=== PATIENT | female | born 1945 | race Caucasian/White ===

== ENCOUNTER 2017-06-13 20:57 | Inpatient (IN) | payer MEDICARE, OTHER ==
[~2017-06-13] VITALS: Ht 157.5 cm; Wt 79.4 kg
[2017-06-13 21:15] VITALS: BP 171/123; PULSE 64; RESP 20; TEMP 98.6; O2SAT 96
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
--- NOTE | 2017-06-13 22:11 | RADRPT ---
EXAM DATE/TIME: 06/13/2017 21:48 [facility] COMPARISON: No previous studies available for comparison. INDICATIONS : Cough MEDICAL HISTORY : Parkinson's. smoker. SURGICAL HISTORY : Stents. ENCOUNTER: Initial ACUITY: 2 months PAIN SCORE: 0/10 LOCATION: Bilateral chest FINDINGS: Mild bibasilar infiltrates. No significant effusion. Cardiac contour is satisfactory. Mild degenerati ve changes in the spine and shoulders. CONCLUSION: Mild basilar infiltrates Randy Newman MD on June 13, 2017 at 22:08 Board Certified Radiologist. This report was verified electronically.
[2017-06-13 22:15] LABS: BILIRUBIN, URINE NEG (NEG); BLOOD, URINE NEG (NEG); GLUCOSE,URINE NEG (NEG); KETONE, URINE NEG (NEG); NITRITE,URINE NEG (NEG); URINE COLOR YELLOW (YELLW/STRAW); URINE LEUKOCYTE ESTERASE TRACE (NEG)
[2017-06-13 22:32] LABS: ALBUMIN 3.3 GM/DL (3.4-5.0); ALT (GPT) 22 U/L (10-53); AST (GOT) 14 U/L (15-37); BICARBONATE 28.8 MEQ/L (21.0-32.0); BLOOD UREA NITROGEN 24 MG/DL (7-18); CALCIUM 9.2 MG/DL (8.5-10.1); CHLORIDE 104 MEQ/L (98-107); CREATININE 0.78 MG/DL (0.50-1.00); GLOMERULAR FILTRATION RATE 72 ML/MIN (>89); GLUCOSE,RANDOM 101 MG/DL (74-106); SODIUM (NA) 138 MEQ/L (136-145)
[2017-06-13 22:35] LABS: ALKALINE PHOSPHATASE 59 U/L (45-117); AUTOMATED NEUTROPHIL # 3.7 TH/MM3 (1.8-7.7); BASOPHIL % 0.3 % (0.0-2.0); EOSINOPHIL # 0.1 TH/MM3 (0-0.4); EOSINOPHIL % 1.1 % (0.0-4.0); HEMATOCRIT 36.6 % (35.0-46.0); HEMOGLOBIN 12.3 GM/DL (11.6-15.3); LYMPH % 31.9 % (9.0-44.0); LYMPHOCYTE # 2.2 TH/MM3 (1.0-4.8); MEAN CELL VOLUME 87.5 FL (80.0-100.0); MEAN CORPUSCULAR HEMOGLOBIN 29.5 PG (27.0-34.0); MEAN CORPUSCULAR HGB CONC 33.7 % (32.0-36.0); MEAN PLATELET VOLUME 9.8 FL (7.0-11.0); MONO % 12.7 % (0.0-8.0); MONOCYTE # 0.9 TH/MM3 (0-0.9); PLATELET COUNT 211 TH/MM3 (150-450); RED BLOOD COUNT 4.18 MIL/MM3 (4.00-5.30); RED CELL DISTRIBUTION WIDTH 15.5 % (11.6-17.2); TOTAL BILIRUBIN ADULT 0.2 MG/DL (0.2-1.0); TOTAL PROTEIN 7.4 GM/DL (6.4-8.2); WHITE BLOOD COUNT 6.8 TH/MM3 (4.0-11.0)
[2017-06-14 00:30] VITALS: BP 144/76; PULSE 80; RESP 20; TEMP 98; O2SAT 98
[2017-06-14] MEDS ORDERED: DEXAMETHASONE SOD PHOS 4 MG/ML VIAL IM ONE (00:30)
[2017-06-14] MEDS ORDERED: AZITHROMYCIN 250 MG TAB PO ONE (00:30)
[2017-06-14] MEDS ORDERED: CHLORPHENIR/HYDROCOD LIQUID 8 MG/10 MG/5 ML CUP PO ONE (00:30)
[2017-06-14] MEDS: RESP: ALBUTEROL 2.5 MG/IPRATROPIUM 0.5 MG NEB (SCH) INH (00:46)
[2017-06-14] MEDS ORDERED: ALBU6.7H INH (01:13)
[2017-06-14] MEDS ORDERED: IPRA17I INH (01:13)
[2017-06-14] MEDS ORDERED: ZITH500T PO (01:13)
[2017-06-14] MEDS ORDERED: ZOLPIDEM TARTRATE 5 MG TAB PO ONE (03:15)
[2017-06-14 06:00] VITALS: BP 138/70; PULSE 88; RESP 20; TEMP 98.4; O2SAT 98
[2017-06-14 07:29] VITALS: BP 135/76; PULSE 57; RESP 20; O2SAT 98
[2017-06-14] MEDS ORDERED: AMLO5TAB2 PO (10:22)
[2017-06-14] MEDS ORDERED: BISC10SU RECTAL (10:22)
[2017-06-14] MEDS ORDERED: SINE10100 PO (10:22)
[2017-06-14] MEDS ORDERED: MINER RECTAL (10:22)
[2017-06-14] MEDS ORDERED: FLUT50SP EACH NARE (10:22)
[2017-06-14] MEDS ORDERED: ASPI-516 CHEW (10:22)
[2017-06-14] MEDS ORDERED: BACT800T5 PO (10:22)
[2017-06-14] MEDS ORDERED: TUBE5INJ3 I-DERMAL (10:22)
[2017-06-14] MEDS ORDERED: ENTA1TAB PO (10:22)
[2017-06-14] MEDS ORDERED: DEPA500T PO (10:22)
[2017-06-14] MEDS ORDERED: METF850 PO (10:22)
[2017-06-14] MEDS ORDERED: LISI10TA3 PO (10:22)
[2017-06-14] MEDS ORDERED: MILKSUS PO (10:22)
[2017-06-14] MEDS ORDERED: ALBUAER3 INH (10:22)
[2017-06-14] MEDS ORDERED: NOVOINJ3 SQ (10:22)
[2017-06-14] MEDS ORDERED: SERO50TA PO (10:22)
--- NOTE | 2017-06-14 11:29 | HHI.HP ---
Provisional Diagnosis Admission Date Jun 14, 2017 at 10:47 [place] I. Schizoaffective disorder, bipolar type [place] II. Deferred [place] III. Hypertension, Parkinson's disease, diabetes [place] IV. Conflicts in her residential facility [place] V. 35 Certification of Person's Competence To Provide Express and Informed Consent I have personally examined Leann Moy , a person being served at [facility] on, Jun 14, 2017 11:08. Express and informed consent means consent voluntarily given in writing, by a competent person, after sufficient explanation and disclosure of the subject matter involved to enable the person to make a knowing and willful decision without any element of force, fraud, deceit, duress, or other form of constraint or coercion. This person is 18 years of age or older, is not now known to be incompetent to consent to treatment with a guardian advocate, and does not have a health care surrogate or proxy currently making medical treatment decisions. I have found this person to be one of the following: [] Competent to provide express and informed consent, as defined above, for voluntary admission to this facility and is competent to provide express and informed consent for treatment. He/she has the consistent capacity to make well reasoned, willful, and knowing decisions concerning his or her medical or mental health treatment. The person fully and consistently understands the purpose of the admission for examination/placement and is fully capable of personally exercising all rights [place] [x] Incompetent to provide express and informed consent to voluntary admission, and this is incompetent to provide express and informed consent to treatment. The person must be transferred to involuntary status and a petition for a guardian advocate filed with the Circuit Court. [] Refusing to provide express and informed consent to voluntary admission but is competent to provide express and informed consent for treatment. The person must be discharged or transferred to involuntary status. Form shall be completed within 24 hours of a person's arrival at the receiving facility and filed in the clinical record of each person: 1. Admitted on a voluntary basis 2. Permitted to provide express and informed consent to his/her own treatment 3. Allowed to transfer from involuntary to voluntary status 4. Prior to permitting a person to consent to his or her own treatment after having been previously found incompetent to consent to treatment. History of Present Illness Capacity: Lacks Capacity HPI The patient is a 72-year-old woman, domiciled in [facility] in [place], , mother of 2 boys, supported by usp benefits, with psychiatric history of schizoaffective disorder, multiple psychiatric hospitalizations, no previous suicidal attempts, her last psychiatric hospitalization was a month ago in [facility], she is in on Depakote 500 mg twice daily, Seroquel 50 minute 1 twice daily, the patient has been in lithium in the past, she denies history of alcohol or drug abuse, she has medical history of COPD, diabetes, Parkinson's disease, hypertension, who presents emergency department under [place] act by PD. She allegedly had become increasingly agitated and combative towards staff. They were concerned that she was noncompliant with her medications. Patient was consulted to psychiatry. Documentation and chart was reviewed. Case was widely discussed with nursing charge. Lateral information from her son Randy, was obtained, he is her power of compliance attorney. On psychiatric evaluation the patient seems to be agitated, visibly upset, stating that her civil rights has been violated by her YOGESH. The patient says that the only reason she asked to come to the hospital is because she had a right toe pain. The patient denies ever being aggressive with anybody. At the same time the patient denies ever having psychiatric history and denies previous psychiatric hospitalizations. She denies taking any psychotropics. She seems to have a very poor insight of her psychiatric conditions. During my evaluation the patient is very labile, at times through safe, but she reports that other than being upset for being here she is in an okay mood she denies hopelessness, denies helplessness, denies suicidal and was ideation, she denies visual and auditory hallucinations. The patient is fully oriented 3 at this moment. Once she calms down the patient is able to cooperate with evaluation. She tells me that she has been having different kind of conflict with people in her [facility]. She told me that she was working for [employer] for many years, and sometimes still work as a part-time. Patient denies the use of alcohol and illegal drugs. Her son adds, that since the patient is out of lithium she has been in and out of psychiatric hospitalizations and having issues with aggressive behavior. She was on lithium for over 15 years, very stable of her schizoaffective disorder, but last year she became intoxicated and lithium was discontinued. He understand the patient has been becoming very aggressive and agitated, and she might benefit of psychiatric admission at the moment. He agrees that the patient should be restarted in her current psychotropics, "the most poorly she has not been taking". Review of Systems Constitutional: DENIES: Diaphoretic episodes, Fatigue, Fever, Weight gain, Weight loss, Chills, Dizziness, Change in appetite, Night Sweats Endocrine: DENIES: Abnorml menstrual pattern, Heat/cold intolerance, Polydipsia , Polyuria, Polyphagia Eyes: DENIES: Blurred vision, Diplopia, Eye inflammation, Eye pain, Vision loss , Photosensitivity, Double Vision Ears, nose, mouth, throat: DENIES: Tinnitus, Hearing loss, Vertigo, Nasal discharge, Oral lesions, Throat pain, Hoarseness, Ear Pain, Running Nose, Epistaxis, Sinus Pain, Toothache, Odynophagia Respiratory: DENIES: Apneas, Cough, Snoring, Wheezing, Hemoptysis, Sputum production, Shortness of breath Cardiovascular: DENIES: Chest pain, Palpitations, Syncope, Dyspnea on Exertion , PND, Lower Extremity Edema, Orthopnea, Claudication Gastrointestinal: DENIES: Abdominal pain, Black stools, Bloody stools, Constipation, Diarrhea, Nausea, Vomiting, Difficulty Swallowing, Anorexia Genitourinary: DENIES: Abnormal vaginal bleeding, Dysmenorrhea, Dyspareunia, Sexual dysfunction, Urinary frequency, Urinary incontinence, Urgency, Hematuria , Dysuria, Nocturia, Vaginal discharge Musculoskeletal: DENIES: Joint pain, Muscle aches, Stiffness, Joint Swelling, Back pain, Neck pain Integumentary: DENIES: Abnormal pigmentation, Pruritus, Rash, Nail changes, Breast masses, Breast skin changes, Nipple discharge Hematologic/lymphatic: DENIES: Bruising, Lymphadenopathy Immunologic/allergic: DENIES: Eczema, Urticaria Neurologic: DENIES: Abnormal gait, Headache, Localized weakness, Paresthesias, Seizures, Speech Problems, Tremor, Poor Balance Psychiatric: COMPLAINS OF: Agitation, DENIES: Anxiety, Confusion, Mood changes , Depression, Hallucinations, Suicidal Ideation, Homicidal Ideation, Delusions Past Psych History Violence risk - others (6 mos) Increased due to the level of aggressiveness Substance Abuse History Drugs/Alcohol past 12 months Patient denies the use of alcohol and illegal drugs. Past Family Social History Coded Allergies: amoxicillin (Verified Allergy, Unknown, 06/13/17) clavulanic acid (Verified Allergy, Unknown, 06/13/17) Active Scripts Ipratropium HFA 12.9 GM Inh (Atrovent HFA 12.9 GM Inh) 17 Mcg/Actuation Aer, 2 PUFF INH QID, #1 INHALER 0 Refills Prov:Dinh Luz MD 06/14/17 Albuterol 6.7 GM Inh (Proventil Hfa 6.7 GM Inh) 90 Mcg/Act Aer, 2 PUFF INH Q6H Y for SHORTNESS OF BREATH, #1 INHALER 0 Refills Prov:Dinh Luz MD 06/14/17 Azithromycin (Zithromax) 500 Mg Tab, 500 MG PO DAILY for Infection for 5 Days, # 5 TAB 0 Refills Prov:Dinh Luz MD 06/14/17 Reported Medications Quetiapine (Seroquel) 50 Mg Tab, 50 MG PO BID, #60 TAB 0 Refills 06/14/17 Amlodipine (Amlodipine) 5 Mg Tab, 5 MG PO DAILY for Blood Pressure Management, # 30 TAB 0 Refills 06/14/17 Carbidopa-Levodopa (Sinemet) 10-100 Mg Tab, 1 TAB PO Q8HR for Parkinson Disease Mgmt, #90 TAB 0 Refills 06/14/17 Metformin (Glucophage) 850 Mg Tab, 1000 MG PO BID for Blood Sugar Management, # 90 TAB 0 Refills 06/14/17 Fluticasone Nasal [place] (Fluticasone Nasal [place]) 50 Mcg/Act Naspr, 50 MCG EACH NARE BID for Allergy Management, #1 BOTTLE 0 Refills 50 mcg/spray 06/14/17 Aspirin (Aspirin) 81 Mg Chew, 81 MG CHEW DAILY, TAB 0 Refills 06/14/17 Entacapone (Entacapone) 200 Mg Tab, 200 MG PO 5 TIMES A DAY for Parkinson Disease Mgmt, #150 TAB 0 Refills administered concomitantly with each levodopa/carbidopa dose 06/14/17 Lisinopril (Lisinopril) 10 Mg Tab, 10 MG PO DAILY, #30 TAB 0 Refills 06/14/17 Albuterol 8.5 GM Inh (Proair Hfa 8.5 GM Inh) 90 Mcg/Act Aer, 1 PUFF INH Q4H Y for SHORTNESS OF BREATH, #1 INHALER 0 Refills 108 mcg/actuation 06/14/17 Insulin Aspart Inj (Novolog Flexpen Inj) 300 Unit/3 Ml Pen, 1 UNITS SQ for Blood Sugar Management, #1 PEN 0 Refills 06/14/[address] (Eriberto MURCIA) 500 Mg Tabdr, 500 MG PO BID for Control Seizures, # 60 TAB 0 Refills 06/14/[address] (Eriberto MURCIA) 500 Mg Tabdr, 500 MG PO BID for Control Seizures, # 60 TAB 0 Refills 06/14/17 Bisacodyl Supp (Biscolax Supp) 10 Mg Supp, 10 MG RECTAL DAILY Y for CONSTIPATION , SUPP 0 Refills 06/14/17 Magnesium Hydroxide Liq (Milk of Magnesia Liq) 400 Mg/5 Ml Susp, 15 ML PO DAILY Y for INDIGESTION OR UPSET STOMACH, #1 BOTTLE 0 Refills 06/14/17 Mineral Oil Enema (Fleet Oil Enema) 118 Ml Enem, 1 EA RECTAL DIRECTED Y for CONSTIPATION, #1 BOTTLE 0 Refills 06/14/17 Tuberculin Ppd (Tubersol) 5 Unit/0.1 Ml Syringe, 0.1 ML I-DERMAL .ONCE for Tuaberculin Test, #1 SYRINGE 0 Refills 06/14/17 Sulfamethoxazole-Trimethoprim (Bactrim DS) 800-160 Mg Tab, 1 TAB PO BID for Infection, TAB 0 Refills 06/14/17 Family Psych History No family psychiatric history Social History Patient was born and raised in [place], she lives in an [facility] in [place], is , she has 2 boys, she used to work in [employer] for over 15 years, her highest level of education is high school Patient's Strengths (min. 2) Family support, verbal communication Physical Exam Patient presents some level of psychomotor agitation, but not EPS, no withdrawal , no stiffness, no gait disturbances present Vital Signs Vital Signs Date Time Temp Pulse Resp B/P (MAP) Pulse Ox O2 Delivery O2 Flow Rate FiO2 06/14/17 07:29 57 20 135/76 (95) 98 Room Air 06/14/17 06:00 98.4 Lab Results Test 06/13/17 21:15 White Blood Count 6.8 TH/MM3 Red Blood Count 4.18 MIL/MM3 Hemoglobin 12.3 GM/DL Hematocrit 36.6 % Mean Corpuscular Volume 87.5 FL Mean Corpuscular Hemoglobin 29.5 PG Mean Corpuscular Hemoglobin Concent 33.7 % Red Cell Distribution Width 15.5 % Platelet Count 211 TH/MM3 Mean Platelet Volume 9.8 FL Neutrophils (%) (Auto) 54.0 % Lymphocytes (%) (Auto) 31.9 % Monocytes (%) (Auto) 12.7 % Eosinophils (%) (Auto) 1.1 % Basophils (%) (Auto) 0.3 % Neutrophils # (Auto) 3.7 TH/MM3 Lymphocytes # (Auto) 2.2 TH/MM3 Monocytes # (Auto) 0.9 TH/MM3 Eosinophils # (Auto) 0.1 TH/MM3 Basophils # (Auto) 0.0 TH/MM3 CBC Comment DIFF FINAL Differential Comment Urine Color YELLOW Urine Turbidity CLEAR Urine pH 7.0 Urine Specific [place] 1.011 Urine Protein NEG mg/dL Urine Glucose (UA) NEG mg/dL Urine Ketones NEG mg/dL Urine Occult Blood NEG Urine Nitrite NEG Urine Bilirubin NEG Urine Urobilinogen LESS THAN 2.0 MG/DL Urine Leukocyte Esterase TRACE Urine RBC LESS THAN 1 /hpf Urine WBC 1 /hpf Microscopic Urinalysis Comment CULT NOT INDICATED Blood Urea Nitrogen 24 MG/DL Creatinine 0.78 MG/DL Random Glucose 101 MG/DL Total Protein 7.4 GM/DL Albumin 3.3 GM/DL Calcium Level 9.2 MG/DL Alkaline Phosphatase 59 U/L Aspartate Amino Transf (AST/SGOT) 14 U/L Alanine Aminotransferase (ALT/SGPT) 22 U/L Total Bilirubin 0.2 MG/DL Sodium Level 138 MEQ/L Potassium Level 4.5 MEQ/L Chloride Level 104 MEQ/L Carbon Dioxide Level 28.8 MEQ/L Anion Gap 5 MEQ/L Estimat Glomerular Filtration Rate 72 ML/MIN Urine Opiates Screen NEG Urine Barbiturates Screen NEG Urine Amphetamines Screen NEG Urine Benzodiazepines Screen NEG Urine Cocaine Screen NEG Urine Cannabinoids Screen NEG Ethyl Alcohol Level LESS THAN 3 MG/DL Mental Status Examination Appearance: Appropriate Consciousness: Alert Orientation: x4 Motor Activity: Normal gait Speech: Unremarkable Language: Adequate Fund of Knowledge: Adequate Attention and Concentration: Adequate Memory: Unremarkable Mood: Angry Thought Process & Associations: Intact Thought Content: Appropriate Hallucination Type: None Delusion Type: None Suicidal Ideation: No Suicidal Plan: No Suicidal Intention: No Homicidal Ideation: No Homicidal Plan: No Homicidal Intention: No Insight: Poor Judgment: Poor Assessment & Plan Problem List: (1) Schizoaffective disorder ICD Codes: F25.9 - Schizoaffective disorder, unspecified Assessment & Plan: On psychiatric evaluation today patient seems to be quite agitated, no aggressive, very labile, requesting to be discharged. Patient seems to have a very poor insight of recent actions and also of her psychiatric history. For example, she denies having psychiatric history and uses psychotropics as well as previous psychiatric hospitalizations when she does have a long history of schizoaffective disorder bipolar type, with multiple psychiatric hospitalizations, a very recent hospitalization in [facility] and the patient has been in lithium for over 15 years. As per [facility] and also collateral information from her son, the patient has being increasingly aggressive, with agitation and volatility. At this moment the patient has an increased risk of danger to self and others due to the level of agitation. Patient will be admitted in psychiatry for safety and stabilization. We will restart Seroquel 50 mg twice daily, Depakote 500 mg twice daily, will order Depakote levels. Consult psychiatry for second opinion. Consult hospitalist to help with multiple underlying medical conditions. mud worker intervention for psychosocial assessment, individual and group therapies, collateral information and to coordinate safe discharge. Assessment & Plan Estimated LOS: days Problem Qualifiers (1) Schizoaffective disorder: Qualified Codes: F25.0 - Schizoaffective disorder, bipolar type Tanmay Goldman MD Jun 14, 2017 11:29
[2017-06-14] MEDS ORDERED: ENTACAPONE 200 MG PO SCH (14:00)
[2017-06-14] MEDS: CARBIDOPA/LEVODOPA 10 MG/100 MG TAB PO SCH ×2 (14:55→21:07)
[2017-06-14] MEDS: QUEtiapine FUMARATE 100 MG TAB PO SCH ×2 (14:55→21:06)
[2017-06-14 18:47] VITALS: BP 161/82; PULSE 57; RESP 18; TEMP 97.9; O2SAT 97
[2017-06-14] MEDS ORDERED: DIVALPROEX DR 500 MG TABEC PO SCH (21:00)
[2017-06-14] MEDS: metFORMIN HCL 500 MG TAB PO SCH (21:06)
[2017-06-14] MEDS: DIVALPROEX DR 500 MG TABEC PO SCH (21:06)
[2017-06-14] MEDS: SULFAMETHOXAZOLE-TRIMETHOPRIM DS 800-160 MG TAB PO SCH (21:07)
[2017-06-15] MEDS: CARBIDOPA/LEVODOPA 10 MG/100 MG TAB PO SCH ×3 (05:18→22:00)
[2017-06-15 05:36] VITALS: BP 141/107; PULSE 67; RESP 20; O2SAT 93
[2017-06-15] MEDS: LISINOPRIL 10 MG TAB PO SCH (08:37)
[2017-06-15] MEDS: ASPIRIN 81 MG CHEW TAB CHEW SCH (08:37)
[2017-06-15] MEDS: amLODIPine BESYLATE 5 MG TAB PO SCH (08:38)
[2017-06-15] MEDS: DIVALPROEX DR 500 MG TABEC PO SCH ×2 (08:38→21:56)
[2017-06-15] MEDS: QUEtiapine FUMARATE 100 MG TAB PO SCH ×2 (08:38→21:55)
--- NOTE | 2017-06-15 08:38 | PD.CONS ---
[facility] By [facility] Pe[facility] Reason for Consult Medical management Primary Care Physician Unknown Diagnoses: History of Present Illness 72-year-old white female presents emergency department under [place] act by PD. Patient lives [facility]. She allegedly had become increasingly agitated and combative towards staff. They were concerned that she was noncompliant with her medications. Patient has a history of schizophrenia, bipolar, hypertension , hypercholesterolemia, diabetes, Parkinson's disease and questionable COPD. Patient here denies any suicidal homicidal ideation. She states that 1 of the patient care techs has been aggravating her. He has been aggressive towards her. Patient denies any threatening actions or statements. Patient reports being compliant with medications. She has had a recent cold. She is on Keflex currently. She has been sick for the past week with runny nose, congestion, cough and occasional wheezing. She denies any shortness of breath. She does continue to smoke a half pack of cigarettes a day. Review of Systems ROS Limitations: Clinical Condition, Psychotic Except as stated in HPI: all other systems reviewed are Neg Past Family Social History Allergies: Coded Allergies: amoxicillin (Verified Allergy, Unknown, 06/13/17) clavulanic acid (Verified Allergy, Unknown, 06/13/17) Past Medical History Hypertension, COPD, seizure, parkinsonism, diabetes mellitus, Schizophrenia, bipolar, hypertension, diabetes, arthritis, HTN Past Surgical History Hysterectomy Reported Medications Reported Meds & Active Scripts Active Atrovent HFA 12.9 GM Inh (Ipratropium [place]) 17 Mcg/Actuation Aer 2 Puff INH QID Proventil Hfa 6.7 GM Inh (Albuterol Sulfate) 90 Mcg/Act Aer 2 Puff INH Q6H PRN Zithromax (Azithromycin) 500 Mg Tab 500 Mg PO DAILY 5 Days Reported Seroquel (Quetiapine Fumarate) 50 Mg Tab 50 Mg PO BID Amlodipine (Amlodipine Besylate) 5 Mg Tab 5 Mg PO DAILY Sinemet (Carbidopa/Levodopa) 10-100 Mg Tab 1 Tab PO Q8HR Glucophage (Metformin HCl) 850 Mg Tab 1,000 Mg PO BID Fluticasone Nasal [place] 50 Mcg/Act Naspr 50 Mcg EACH NARE BID 50 mcg/spray Aspirin 81 Mg Chew 81 Mg CHEW DAILY Entacapone 200 Mg Tab 200 Mg PO 5 TIMES A DAY administered concomitantly with each levodopa/carbidopa dose Lisinopril 10 Mg Tab 10 Mg PO DAILY Proair Hfa 8.5 GM Inh (Albuterol Sulfate) 90 Mcg/Act Aer 1 Puff INH Q4H PRN 108 mcg/actuation Novolog Flexpen Inj (Insulin Aspart) 300 Unit/3 Ml Pen [address] (Divalproex Sodium) 500 Mg Tabdr 500 Mg PO BID Depakote DR (Divalproex Sodium) 500 Mg Tabdr 500 Mg PO BID Biscolax Supp (Bisacodyl) 10 Mg Supp 10 Mg RECTAL DAILY PRN Milk of Magnesia Liq (Magnesium Hydroxide) 400 Mg/5 Ml Susp 15 Ml PO DAILY PRN [place] Oil Enema (Mineral Oil) 118 Ml Enem 1 Ea RECTAL DIRECTED PRN Tubersol (Tuberculin Ppd) 5 Unit/0.1 Ml Syringe 0.1 Ml I-DERMAL .ONCE Bactrim DS (Sulfamethoxazole-Trimethoprim) 800-160 Mg Tab 1 Tab PO BID Family History HTN runs in family, unspecified Social History Alcohol Use: Yes, unspecified Tobacco Use: Yes, unspecified Substance Use: No Physical Exam Vital Signs Vital Signs Date Time Temp Pulse Resp B/P (MAP) Pulse Ox O2 Delivery O2 Flow Rate FiO2 06/15/17 05:36 67 20 141/107 (118) 93 06/14/17 18:47 97.9 57 18 161/82 (108) 97 06/14/17 10:40 Physical Exam GENERAL: This is a well-nourished, well-developed patient, fidgety, psychotic SKIN: No rashes, ecchymoses or lesions. Cool and dry. HEAD: Atraumatic. Normocephalic. No temporal or scalp tenderness. EYES: Pupils equal round and reactive. Extraocular motions intact. No scleral icterus. No injection or drainage. ENT: Nose without bleeding, purulent drainage or septal hematoma. Throat without erythema, tonsillar hypertrophy or exudate. Uvula midline. Airway patent. NECK: Trachea midline. No JVD or lymphadenopathy. Supple, nontender, no meningeal signs. CARDIOVASCULAR: Regular rate and rhythm without murmurs, gallops, or rubs. RESPIRATORY: Clear to auscultation. Breath sounds equal bilaterally. No wheezes , rales, or rhonchi. GASTROINTESTINAL: Abdomen soft, non-tender, nondistended. No hepato-splenomegaly , or palpable masses. No guarding. MUSCULOSKELETAL: Extremities without clubbing, cyanosis, or edema. No joint tenderness, effusion, or edema noted. No calf tenderness. Negative Homans sign bilaterally. NEUROLOGICAL: Awake and alert. Cranial nerves II through XII intact. Motor and sensory grossly within normal limits. Five out of 5 muscle strength in all muscle groups. Pressured speech. Laboratory Laboratory Tests Test 06/14/17 13:25 Valproic Acid (Depakene) Level 28 Result Diagram: 06/13/17211406/13/172114 Imaging Last Impressions Chest X-Ray 06/13/172138 Signed Impressions: Service Date/Time: May 21:48 - CONCLUSION: Mild basilar infiltrates Randy Newman MD Assessment and Plan Assessment and Plan Psychosis, Schizophrenia, bipolar - management per psych COPD/ Pneumonia X-ray reveals possible basilar infiltrates. Continue azithromycin po antibiotic Duonebs as need IS Chronic medical problems appears stable at this time. Resume home meds as need. Hypertension, parkinsonism, diabetes mellitus, diabetes, arthritis DVT ambulation Thank you for this consultation will follow along Discussed Condition With pt, nurse Kayleigh Burroughs MD Jun 15, 2017 08:38
[2017-06-15] MEDS: AZITHROMYCIN 250 MG TAB PO SCH (08:39)
[2017-06-15] MEDS: SULFAMETHOXAZOLE-TRIMETHOPRIM DS 800-160 MG TAB PO SCH (08:39)
[2017-06-15] MEDS: metFORMIN HCL 500 MG TAB PO SCH ×2 (08:53→21:55)
[2017-06-15 11:22] VITALS: O2SAT 96
--- NOTE | 2017-06-15 14:11 | HHI.PYPN ---
Subjective Remarks This is a request for second opinion. Admission note was reviewed and I agree with the history. Patient was seen and case was discussed with nursing. Patient was admitted for agitation and disorganized behavior. Today she is not agitated and insight remains quite poor concerning her psychiatric history patient is a poor historian and minimizes her symptoms. She is compliant with medications and tolerating them well. Denies any psychotic symptoms Mental Status Examination Appearance: Appropriate Consciousness: Alert Orientation: x4 Motor Activity: Normal gait Speech: Unremarkable Language: Adequate Fund of Knowledge: Adequate Attention and Concentration: Adequate Memory: Unremarkable Mood: Angry Thought Process & Associations: Intact Thought Content: Appropriate Hallucination Type: None Delusion Type: None Suicidal Ideation: No Suicidal Plan: No Suicidal Intention: No Homicidal Ideation: No Homicidal Plan: No Homicidal Intention: No Insight: Poor Judgment: Poor Results Vitals/IOs Vital Signs Date Time Temp Pulse Resp B/P (MAP) Pulse Ox O2 Delivery O2 Flow Rate FiO2 06/15/17 11:22 96 06/15/17 05:36 67 20 141/107 (118) 06/14/17 18:47 97.9 06/14/17 07:29 Room Air Intake and Output 06/15/17 06/15/17 06/16/17 08:00 16:00 00:00 Intake Total 240 ml 240 ml Balance 240 ml 240 ml Assessment & Plan Problem List: (1) Schizoaffective disorder ICD Codes: F25.9 - Schizoaffective disorder, unspecified Assessment & Plan I agree with the first opinion to continue petition. Criteria include aggressive and disorganized behavior Justification for Cont. Inpt. Patient would decompensate in a less restrictive setting Problem Qualifiers (1) Schizoaffective disorder: Qualified Codes: F25.0 - Schizoaffective disorder, bipolar type Ghassan Iqbal DO Jun 15, 2017 14:11
[2017-06-15] MEDS ORDERED: RESP: ALBUTEROL 2.5 MG/IPRATROPIUM 0.5 MG NEB (PRN) NEB (14:15)
[2017-06-15] MEDS: BENZONATATE 100 MG CAP PO PRN (16:31)
[2017-06-15 18:11] VITALS: BP 111/53; PULSE 90; RESP 16; O2SAT 90
[2017-06-16] MEDS: BENZONATATE 100 MG CAP PO PRN ×2 (01:32→20:59)
[2017-06-16] MEDS: ALBUTEROL SULFATE 90 MCG/ACT HFA 8 GM INHALER INH PRN (01:32)
[2017-06-16] MEDS: CARBIDOPA/LEVODOPA 10 MG/100 MG TAB PO SCH ×3 (05:04→22:00)
[2017-06-16 06:18] VITALS: BP 142/98; PULSE 53; RESP 18; TEMP 97.2; O2SAT 98
[2017-06-16] MEDS: AZITHROMYCIN 250 MG TAB PO SCH (09:24)
[2017-06-16] MEDS: DIVALPROEX DR 500 MG TABEC PO SCH ×2 (09:24→20:51)
[2017-06-16] MEDS: LISINOPRIL 10 MG TAB PO SCH (09:24)
[2017-06-16] MEDS: QUEtiapine FUMARATE 100 MG TAB PO SCH ×2 (09:24→20:51)
[2017-06-16] MEDS: metFORMIN HCL 500 MG TAB PO SCH ×2 (09:25→20:51)
[2017-06-16] MEDS: amLODIPine BESYLATE 5 MG TAB PO SCH (09:25)
[2017-06-16] MEDS: ASPIRIN 81 MG CHEW TAB CHEW SCH (09:25)
--- NOTE | 2017-06-16 10:58 | HHI.PR ---
Subjective Remarks Patient was noted with some wheezing, refusing nebs. She is satting well on room air. Psychotic. No n/v/d/c. Says she is hungry. Objective Vitals Vital Signs Date Time Temp Pulse Resp B/P (MAP) Pulse Ox O2 Delivery O2 Flow Rate FiO2 06/16/17 06:18 97.2 53 18 142/98 (113) 98 06/15/17 18:11 90 16 111/53 (72) 90 06/15/17 11:22 96 I/O 06/15/17 06/15/17 06/15/17 06/16/17 06/16/17 06/16/17 07:00 15:00 23:00 07:00 15:00 23:00 Intake Total 240 ml 240 ml 240 ml Balance 240 ml 240 ml 240 ml Intake Oral 240 ml 240 ml 240 ml # Voids 2 2 Result Diagram: 06/13/17211406/13/172114 Imaging Last Impressions Chest X-Ray 06/13/172138 Signed Impressions: Service Date/Time: May 21:48 - CONCLUSION: Mild basilar infiltrates Randy Newman MD Objective Remarks GENERAL: This is a well-nourished, well-developed patient, fidgety, psychotic CARDIOVASCULAR: Regular rate and rhythm without murmurs, gallops, or rubs. RESPIRATORY: Some scattered wheezing . In nad, not with sob, satting, well on room air. No , rales, or rhonchi. GASTROINTESTINAL: Abdomen soft, non-tender, nondistended. No hepato-splenomegaly , or palpable masses. No guarding. MUSCULOSKELETAL: Extremities without clubbing, cyanosis, or edema. No joint tenderness, effusion, or edema noted. No calf tenderness. Negative Homans sign bilaterally. NEUROLOGICAL: Awake and alert. Cranial nerves II through XII intact. Motor and sensory grossly within normal limits. Five out of 5 muscle strength in all muscle groups. Pressured speech. A/P Assessment and Plan Psychosis, Schizophrenia, bipolar - management per psych COPD/ Pneumonia X-ray reveals possible basilar infiltrates. Continue azithromycin PO antibiotic Duonebs scheduled Q6 hrs while awake, taper as tolerated and duonebs as need. Noncompliant refused nebs IS Chronic medical problems appears stable at this time. Resume home meds as need. Hypertension, parkinsonism, diabetes mellitus, arthritis DVT ambulation Thank you for this consultation will follow along Discussed Condition With pt, nurse Kayleigh Burroughs MD Jun 16, 2017 10:58
--- NOTE | 2017-06-16 11:12 | HHI.PYPN ---
Subjective Remarks Patient was seen and case discussed with nursing. Per nursing patient has been demanding and entitled. She is been having arguments with techs about the layout of her close another small items on the unit. During her interview her voice is raspy and possibly ordered a breathing treatment. Insight remains poor. However, she has not had any aggressive behavior Mental Status Examination Appearance: Appropriate Consciousness: Alert Orientation: x4 Motor Activity: Normal gait Speech: Unremarkable Language: Adequate Fund of Knowledge: Adequate Attention and Concentration: Adequate Memory: Unremarkable Mood: Angry Thought Process & Associations: Intact Thought Content: Appropriate Hallucination Type: None Delusion Type: None Suicidal Ideation: No Suicidal Plan: No Suicidal Intention: No Homicidal Ideation: No Homicidal Plan: No Homicidal Intention: No Insight: Poor Judgment: Poor Results Vitals/IOs Vital Signs Date Time Temp Pulse Resp B/P (MAP) Pulse Ox O2 Delivery O2 Flow Rate FiO2 06/16/17 06:18 97.2 53 18 142/98 (113) 98 06/14/17 07:29 Room Air Intake and Output 06/16/17 06/16/17 06/17/17 08:00 16:00 00:00 Intake Total 240 ml Balance 240 ml Assessment & Plan Problem List: (1) Schizoaffective disorder ICD Codes: F25.9 - Schizoaffective disorder, unspecified Assessment & Plan Continue current treatment plan Justification for Cont. Inpt. Patient would decompensate in a less restrictive setting Problem Qualifiers (1) Schizoaffective disorder: Qualified Codes: F25.0 - Schizoaffective disorder, bipolar type Ghassan Iqbal DO Jun 16, 2017 11:11
[2017-06-16] MEDS: RESP: ALBUTEROL 2.5 MG/IPRATROPIUM 0.5 MG NEB (SCH) NEB ×2 (14:00→21:12)
[2017-06-16 18:04] VITALS: BP 112/68; PULSE 59; RESP 20; TEMP 97.6; O2SAT 94
[2017-06-17] MEDS: CARBIDOPA/LEVODOPA 10 MG/100 MG TAB PO SCH ×3 (06:00→22:00)
[2017-06-17 06:12] VITALS: BP 137/76; PULSE 60; RESP 16; TEMP 97.6; O2SAT 94
[2017-06-17] MEDS: BENZONATATE 100 MG CAP PO PRN ×2 (06:34→20:44)
[2017-06-17] MEDS: RESP: ALBUTEROL 2.5 MG/IPRATROPIUM 0.5 MG NEB (SCH) NEB ×3 (08:20→19:58)
[2017-06-17] MEDS: DIVALPROEX DR 500 MG TABEC PO SCH ×2 (08:53→20:44)
[2017-06-17] MEDS: LISINOPRIL 10 MG TAB PO SCH (08:53)
[2017-06-17] MEDS: metFORMIN HCL 500 MG TAB PO SCH ×2 (08:53→20:44)
[2017-06-17] MEDS: QUEtiapine FUMARATE 100 MG TAB PO SCH ×2 (08:53→20:44)
[2017-06-17] MEDS: amLODIPine BESYLATE 5 MG TAB PO SCH (08:53)
[2017-06-17] MEDS: AZITHROMYCIN 250 MG TAB PO SCH (08:53)
[2017-06-17] MEDS: ASPIRIN 81 MG CHEW TAB CHEW SCH (08:54)
--- NOTE | 2017-06-17 11:49 | HHI.PYPN ---
Subjective Remarks The patient was seen today for psychiatric reevaluation. Case was discussed with nursing staff. Documentation from the weekend was reviewed. Psychiatric evaluation today the patient is seen in her room, she is calm, cooperative, pleasant. She reports good mood, she says that she feels comfortable and safe in the unit. At times disorganized, but redirectable. She is oriented in place , but disoriented in time, diffusely confused. She denies suicidal and homicidal ideation, she denies visual and auditory hallucinations. On the unit she has been doing much better today, but in the last 2 days having episodic agitation and even aggressive behavior with staff. Mental Status Examination Appearance: Appropriate Consciousness: Alert Orientation: x4 Motor Activity: Normal gait Speech: Unremarkable Language: Adequate Fund of Knowledge: Adequate Attention and Concentration: Adequate Memory: Unremarkable Mood: Angry Thought Process & Associations: Intact Thought Content: Appropriate Hallucination Type: None Delusion Type: None Suicidal Ideation: No Suicidal Plan: No Suicidal Intention: No Homicidal Ideation: No Homicidal Plan: No Homicidal Intention: No Insight: Poor Judgment: Poor Results Vitals/IOs Vital Signs Date Time Temp Pulse Resp B/P (MAP) Pulse Ox O2 Delivery O2 Flow Rate FiO2 06/17/17 06:12 97.6 60 16 137/76 (96) 94 06/14/17 07:29 Room Air Intake and Output 06/17/17 06/17/17 06/18/17 08:00 16:00 00:00 Intake Total 0 ml Balance 0 ml Assessment & Plan Problem List: (1) Schizoaffective disorder ICD Codes: F25.9 - Schizoaffective disorder, unspecified Assessment & Plan: Patient presents episodic agitation and aggressive behavior. Continue current medication regimen. Assessment & Plan Estimated LOS: days Justification for Cont. Inpt. Patient needs to continue psychiatric hospitalization for stabilization per Problem Qualifiers (1) Schizoaffective disorder: Qualified Codes: F25.0 - Schizoaffective disorder, bipolar type Tanmay Goldman MD Jun 17, 2017 11:49
[2017-06-17 18:04] VITALS: BP 117/56; PULSE 65; RESP 16; TEMP 98.5; O2SAT 94
[2017-06-18] MEDS: BENZONATATE 100 MG CAP PO PRN (01:42)
[2017-06-18] MEDS: ALBUTEROL SULFATE 90 MCG/ACT HFA 8 GM INHALER INH PRN (01:43)
[2017-06-18 06:00] VITALS: BP 107/57; PULSE 52; RESP 18; TEMP 98.5; O2SAT 94
[2017-06-18] MEDS: CARBIDOPA/LEVODOPA 10 MG/100 MG TAB PO SCH ×3 (06:00→21:05)
[2017-06-18] MEDS: RESP: ALBUTEROL 2.5 MG/IPRATROPIUM 0.5 MG NEB (SCH) NEB ×3 (08:10→20:00)
[2017-06-18] MEDS: AZITHROMYCIN 250 MG TAB PO SCH (08:22)
[2017-06-18] MEDS: metFORMIN HCL 500 MG TAB PO SCH ×2 (08:22→21:05)
[2017-06-18] MEDS: DIVALPROEX DR 500 MG TABEC PO SCH ×2 (08:22→21:04)
[2017-06-18] MEDS: QUEtiapine FUMARATE 100 MG TAB PO SCH ×2 (08:22→21:05)
[2017-06-18] MEDS: ASPIRIN 81 MG CHEW TAB CHEW SCH (08:22)
[2017-06-18] MEDS: amLODIPine BESYLATE 5 MG TAB PO SCH (08:22)
[2017-06-18] MEDS: LISINOPRIL 10 MG TAB PO SCH (08:22)
--- NOTE | 2017-06-18 11:22 | HHI.PYPN ---
Subjective Remarks Patient was seen today for psychiatric reevaluation. The patient was found the recreational area of the unit. She was calm, cooperative, pleasant. She reports improved mood, good level of energy, good appetite and sleep at night. Patient reports that she has been planning with her son to find another [facility] for her. The patient denies suicidal enemas ideation, she denies visual and auditory hallucinations. The patient is fully oriented 3. Compliant with her medications, no significant side effects. As per nurse in charge, the patient has been presenting periods of agitation especially in the evening in which the patient becomes disruptive, disorganized needing redirection. Review of Systems Psychiatric: COMPLAINS OF: Agitation Except as stated in HPI: all other systems reviewed are Neg Mental Status Examination Appearance: Appropriate Consciousness: Alert Orientation: x4 Motor Activity: Normal gait Speech: Unremarkable Language: Adequate Fund of Knowledge: Adequate Attention and Concentration: Adequate Memory: Unremarkable Mood: Angry Thought Process & Associations: Intact Thought Content: Appropriate Hallucination Type: None Delusion Type: None Suicidal Ideation: No Suicidal Plan: No Suicidal Intention: No Homicidal Ideation: No Homicidal Plan: No Homicidal Intention: No Insight: Fair Judgment: Impulsive Results Vitals/IOs Vital Signs Date Time Temp Pulse Resp B/P (MAP) Pulse Ox O2 Delivery O2 Flow Rate FiO2 06/18/17 06:00 98.5 52 18 107/57 (74) 94 06/14/17 07:29 Room Air Intake and Output 06/18/17 06/18/17 06/19/17 08:00 16:00 00:00 Intake Total 240 ml Balance 240 ml Assessment & Plan Problem List: (1) Schizoaffective disorder ICD Codes: F25.9 - Schizoaffective disorder, unspecified Assessment & Plan: Patient is still present and periodic agitation and disorganized behavior, but doing much better mood briggs. I will add Seroquel 25 mg at 4 PM for evening agitation Assessment & Plan Estimated LOS: days Justification for Cont. Inpt. Patient has an elevated risk to decompensate at a lower level of care. Problem Qualifiers (1) Schizoaffective disorder: Qualified Codes: F25.0 - Schizoaffective disorder, bipolar type Tanmay Goldman MD Jun 18, 2017 11:22
--- NOTE | 2017-06-18 13:42 | PD.TTN ---
Patient Problems 1. Discharge planning 2. Medication compliance 3. Knowledge deficit 4. Lack of coping skills Progress Toward Goals Provider Present: Dr. Rupert Gomes Provider Input: 06/17/17 new admission Psychiatric Counselors Present: Patricia Burch LCSW Psych Therapist Input: 06/17/17 new admission Group Spec/RT/OT/LE Present: DERRICK Coleman Group Spec/RT/OT/LE Input: 06/17/17 new admission Patricia Burch LCSW Jun 18, 2017 13:42
[2017-06-18 18:00] VITALS: BP 124/59; PULSE 57; RESP 18; TEMP 98.7; O2SAT 98
[2017-06-19] MEDS: BENZONATATE 100 MG CAP PO PRN (03:42)
[2017-06-19] MEDS: ALBUTEROL SULFATE 90 MCG/ACT HFA 8 GM INHALER INH PRN (03:42)
[2017-06-19] MEDS: CARBIDOPA/LEVODOPA 10 MG/100 MG TAB PO SCH (05:27)
[2017-06-19 05:50] VITALS: BP 153/65; PULSE 84; RESP 18; TEMP 97.6; O2SAT 92
[2017-06-19] MEDS: RESP: ALBUTEROL 2.5 MG/IPRATROPIUM 0.5 MG NEB (SCH) NEB (08:00)
[2017-06-19] MEDS: QUEtiapine FUMARATE 100 MG TAB PO SCH (09:04)
[2017-06-19] MEDS: metFORMIN HCL 500 MG TAB PO SCH (09:07)
[2017-06-19] MEDS: ASPIRIN 81 MG CHEW TAB CHEW SCH (09:08)
[2017-06-19] MEDS: DIVALPROEX DR 500 MG TABEC PO SCH (09:08)
[2017-06-19] MEDS: LISINOPRIL 10 MG TAB PO SCH (09:09)
[2017-06-19] MEDS: AZITHROMYCIN 250 MG TAB PO SCH (09:10)
[2017-06-19] MEDS: amLODIPine BESYLATE 5 MG TAB PO SCH (09:10)
[2017-06-19] MEDS ORDERED: SERO50TA PO (09:55)
[2017-06-19] MEDS ORDERED: METF850 PO (09:55)
[2017-06-19] MEDS ORDERED: AMLO5TAB2 PO (09:55)
[2017-06-19] MEDS ORDERED: SINE10100 PO (09:55)
[2017-06-19] MEDS ORDERED: DEPA500T PO (09:55)
[2017-06-19] MEDS ORDERED: ENTA1TAB PO (09:55)
[2017-06-19] MEDS ORDERED: FLUT50SP EACH NARE (09:55)
[2017-06-19] MEDS ORDERED: ASPI-516 CHEW (09:55)
--- NOTE | 2017-06-19 10:06 | HHI.DS ---
Psychiatry Discharge Summary Inpatient Psychiatric care?: Yes Advance Directive: No Reason Not Provided: declined Mental Health AdvanceDirective: No Health Care Proxy: Yes Admission Admission Date Jun 14, 2017 at 10:47 Admission Diagnosis: (1) Schizoaffective disorder ICD Code: F25.9 - Schizoaffective disorder, unspecified Brief History The patient is a 72-year-old woman, domiciled in [facility] in [place], , mother of 2 boys, supported by [employer] benefits, with psychiatric history of schizoaffective disorder, multiple psychiatric hospitalizations, no previous suicidal attempts, her last psychiatric hospitalization was a month ago in [facility], she is in on Depakote 500 mg twice daily, Seroquel 50 minute 1 twice daily, the patient has been in lithium in the past, she denies history of alcohol or drug abuse, she has medical history of COPD, diabetes, Parkinson's disease, hypertension, who presents emergency department under [place] act by PD. She allegedly had become increasingly agitated and combative towards staff. They were concerned that she was noncompliant with her medications. Patient was consulted to psychiatry. Documentation and chart was reviewed. Case was widely discussed with nursing charge. Lateral information from her son Randy, was obtained, he is her power of assistant district attorney. On psychiatric evaluation the patient seems to be agitated, visibly upset, stating that her civil rights has been violated by her [employer]. The patient says that the only reason she asked to come to the hospital is because she had a right toe pain. The patient denies ever being aggressive with anybody. At the same time the patient denies ever having psychiatric history and denies previous psychiatric hospitalizations. She denies taking any psychotropics. She seems to have a very poor insight of her psychiatric conditions. During my evaluation the patient is very labile, at times through safe, but she reports that other than being upset for being here she is in an okay mood she denies hopelessness, denies helplessness, denies suicidal and was ideation, she denies visual and auditory hallucinations. The patient is fully oriented 3 at this moment. Once she calms down the patient is able to cooperate with evaluation. She tells me that she has been having different kind of conflict with people in her [employer]. She told me that she was working for [employer] for many years, and sometimes still work as a part-time. Patient denies the use of alcohol and illegal drugs. Her son adds, that since the patient is out of lithium she has been in and out of psychiatric hospitalizations and having issues with aggressive behavior. She was on lithium for over 15 years, very stable of her schizoaffective disorder, but last year she became intoxicated and lithium was discontinued. He understand the patient has been becoming very aggressive and agitated, and she might benefit of psychiatric admission at the moment. He agrees that the patient should be restarted in her current psychotropics, "the most poorly she has not been taking". Tobacco Use In Past 30 Days: 5 or More Cigarettes/Day Alcohol Use: Monthly or Less Hospital Course The patient was admitted in psychiatry due to aggressive and disorganized behavior at her residential facility. The patient also showed psychotic features such as disorganized behavior and paranoia. Immediate psychiatric and psychosocial assessment were performed once patient was admitted. Safety measures were taken. Patient was started in Seroquel 25 mg twice daily and Depakote 250 mg twice daily to help with her psychosis and behavioral dysregulation. Medication was titrated as the patient could tolerate and until she showed good response. She also was integrated to individual and group therapies in the unit. The patient showed a good response to psychotropic regimen, she went back to baseline once Seroquel was 50 mg twice daily and Depakote 500 mg daily. She was initially compliant, no problematic in the unit , but tended to come agitated and disorganized in the evening. At the moment of discharge the patient is in a good spirits, calm, cooperative, reports good mood, she has a good appetite, no behavioral dysregulation, no agitation or aggressiveness present. No side effects of medication reported. She denies suicidal and homicidal ideation, normal-sized visual and auditory hallucinations. Family member were notified about discharge plan, they verbalized agreement. Results Blood Pressure 153 / 65 Vital Signs Date Time Temp Pulse Resp B/P (MAP) Pulse Ox O2 Delivery O2 Flow Rate FiO2 06/19/17 05:50 97.6 84 18 153/65 (94) 92 Laboratory Tests Test 06/18/17 11:45 Laboratory Results Test 06/18/17 11:45 Valproic Acid (Depakene) Level 54 MCG/ML (50-100) Summary of Major Lab Results Labs reviewed Summary of Procedures No procedures done Imaging Last Impressions Chest X-Ray 06/13/[id number] Signed Impressions: Service Date/Time: May 21:48 - CONCLUSION: Mild basilar infiltrates Randy Newman MD Pending results at discharge: No Medications # of Antipsychotic meds at D/C: 1 Approp Antipsych med options 1 - Minimum of three failed multiple trials of monotherapy. 2 - Documented plan to taper to monotherapy due to previous use of multiple meds OR cross-taper in progress at D/C. 3 - Documentation of augmentation of Clozapine. 4 - Justification other than those listed in allowable values 1-3, document here : Discharge Discharge Date: Jun 19, 2017 Discharge Diagnosis: (1) Schizoaffective disorder Diagnosis: Principal ICD Code: F25.9 - Schizoaffective disorder, unspecified Pt Condition on Discharge: Stable Discharge Disposition: Discharge Home Discharge Instructions Diet Instructions: Heart Healthy Diet Activities you can perform: Weight Bearing as Noemí Scheduled Appointment: At Facility Discharge Time > 30 minutes Mental Status Examination Appearance: Appropriate Consciousness: Alert Orientation: x4 Motor Activity: Normal gait Speech: Unremarkable Language: Adequate Fund of Knowledge: Adequate Attention and Concentration: Adequate Memory: Unremarkable Mood: Angry Thought Process & Associations: Intact Thought Content: Appropriate Hallucination Type: None Delusion Type: None Suicidal Ideation: No Suicidal Plan: No Suicidal Intention: No Homicidal Ideation: No Homicidal Plan: No Homicidal Intention: No Insight: Fair Judgment: Impulsive Discharge/Advance Care Plan Health Problems: (1) Schizoaffective disorder Goals to promote your health * To prevent worsening of your condition and complications * To maintain your health at the optimal level Directions to meet your goals Take your medications as prescribed Follow your dietary instruction Follow activity as directed Keep your appointments as scheduled Take your immunizations and boosters as scheduled If your symptoms worsen call your PCP, if no PCP go to Urgent Care Center or Emergency Room For 17/09 questions related to your inpatient stay or results of tests pending at discharge, please contact Dr. Tanmay Goldman at Smoking is Dangerous to Your Health. Avoid second hand smoking Problem Qualifiers (1) Schizoaffective disorder: Qualified Codes: F25.0 - Schizoaffective disorder, bipolar type Tanmay Goldman MD Jun 19, 2017 10:06
[2017-06-19] MEDS ORDERED: LISI10TA3 PO (10:13)
[2017-06-19] MEDS ORDERED: SERO25TA PO (10:13)
[2017-06-19] MEDS ORDERED: QUEtiapine FUMARATE 25 MG TAB PO SCH (16:00)
== END 2017-06-19 11:00 | DRG 885 ==
LOC: NEDAMB 20:57 → H4EA 06-14 10:47 → H260 06-15 12:13 → H250 06-16 20:03
PROVIDERS: ADMIT Psychiatry & Neurology Psychiatry; ATTEND Psychiatry & Neurology Psychiatry
DX: F25.0 Schizoaffective disorder, bipolar type (principal); J18.9 Pneumonia, unspecified organism; J44.0 Chronic obstructive pulmonary disease with (acute) lower respiratory infection; G20 Parkinson's disease; E11.9 Type 2 diabetes mellitus without complications; E78.00 Pure hypercholesterolemia, unspecified; I10 Essential (primary) hypertension; M19.90 Unspecified osteoarthritis, unspecified site; F17.210 Nicotine dependence, cigarettes, uncomplicated; Z91.19 Patient's noncompliance with other medical treatment and regimen
CPT/HCPCS: 71046; 80053; 80164; 80307; 81001; 82948; 85025; 94640; 94664; 96372; J1100